=== PATIENT | male | born 1975 | race Caucasian/White ===

== ENCOUNTER 2016-10-25 14:00 | Emergency (ER) | payer OTHER ==
[~2016-10-25] VITALS: Ht 177.8 cm; Wt 136.1 kg
[~2016-10-25 14:00] MED LIST: AFRIN30 ML NS; ALBUTEROL SULF8.5 GM INH; BUPROPION HCL100 MG PO; CLARITIN10 MG PO; OMEPRAZOLE40 MG PO; ZOLPIDEM TARTRAT5 MG PO
[2016-10-25] MEDS ORDERED: PRILOSEC OTC20 MG PO (14:11)
[2016-10-25] MEDS ORDERED: KEFLEX500 MG PO (16:01)
[2016-10-25] MEDS ORDERED: ZOFRAN ODT4 MG SL (16:01)
[2016-10-25] MEDS ORDERED: IBUPROFEN800 MG PO (16:01)
[2016-10-25] MEDS ORDERED: OXYCODONE HCL5 MG PO (16:01)
== END 2016-10-25 16:09 | disposition home or self-care (01) ==
LOC: ED 14:00
DX: N39.0 Urinary tract infection, site not specified (principal); Z98.890 Other specified postprocedural states; Z88.5 Allergy status to narcotic agent; Z79.899 Other long term (current) drug therapy
CPT/HCPCS: 74176; 80053; 81001; 85025; 87077; 87088; 87186; 96374; 96375; 99284; J0696; J1170; J1885; J2405

== ENCOUNTER 2016-12-01 19:15 | Emergency (ER) | payer OTHER ==
[~2016-12-01] VITALS: Ht 444.5 cm; Wt 138.8 kg
[~2016-12-01 19:15] MED LIST changes: +IBUPROFEN800 MG PO; +KEFLEX500 MG PO; +OXYCODONE HCL5 MG PO; +PRILOSEC OTC20 MG PO; +ZOFRAN ODT4 MG SL
[2016-12-01] MEDS ORDERED: DICLOFENAC SODI75 MG PO (20:11)
[2016-12-01] MEDS ORDERED: TRAMADOL HCL50 MG PO (20:12)
[2016-12-01] MEDS ORDERED: NORCO 5-325 TA1 EACH PO (22:37)
== END 2016-12-01 23:27 | disposition home or self-care (01) ==
LOC: ED 19:15
DX: S29.011A Strain of muscle and tendon of front wall of thorax, initial encounter (principal); R91.1 Solitary pulmonary nodule; E04.1 Nontoxic single thyroid nodule; J45.909 Unspecified asthma, uncomplicated; F41.9 Anxiety disorder, unspecified; Z79.899 Other long term (current) drug therapy; X58.XXXA Exposure to other specified factors, initial encounter
CPT/HCPCS: 71250; 96374; 96375; 99284; J1170; J2405

== ENCOUNTER 2016-12-04 16:08 | Emergency (ER) | payer OTHER ==
[~2016-12-04] VITALS: Ht 444.5 cm; Wt 138.8 kg
[~2016-12-04 16:08] MED LIST changes: +DICLOFENAC SODI75 MG PO; +NORCO 5-325 TA1 EACH PO; +TRAMADOL HCL50 MG PO
[2016-12-04] MEDS ORDERED: KETOROLAC TROME10 MG PO (18:30)
--- NOTE | 2016-12-04 19:17 | EKG ---
[facility] [address] [place] [address] Signed Normal sinus rhythm Normal ECG No previous ECGs available Confirmed by JOSE MORGAN MD ([id number]) on 12/04/2016 7:17:02 PM Electronically Signed By: JOSE MORGAN MD 12/04/16 1917 PATIENT NAME: SHAZIA ESCAMILLA Electrocardiogram DATE OF : 73 PHYSICIAN: JOSE MORGAN MD REPORT #: [id number] REPORT IS CONFIDENTIAL AND NOT TO BE RELEASED WITHOUT AUTHORIZATION
== END 2016-12-04 19:00 | disposition home or self-care (01) ==
LOC: ED 16:08
DX: R07.2 Precordial pain (principal); J45.909 Unspecified asthma, uncomplicated; G47.30 Sleep apnea, unspecified; F41.9 Anxiety disorder, unspecified; Z79.899 Other long term (current) drug therapy
CPT/HCPCS: 71020; 80053; 85025; 85651; 86140; 93005; 93010; 96374; 96375; 99283; J1170; J1885; J2405

== ENCOUNTER 2016-12-05 09:38 | Observation (INO) | payer OTHER ==
[~2016-12-05] VITALS: Ht 190.5 cm; Wt 145.2 kg
[~2016-12-05 09:38] MED LIST changes: +KETOROLAC TROME10 MG PO
--- NOTE | 2016-12-05 10:30 | NUR ---
PATIENT AMBULATED DOWN TO THE MEDICAL FLOOR FOR ADMISSION TO ROOM 124. PATIENT IS STEADY ON HIS FEET AND PAIN IS TOLERABLE, HE TOOK SOME PAIN MEDICATION PRIOR TO ADMIT TO THE HOSPITAL. PATIENT CHANGED INTO HIS GOWN AND IV STARTED IN THE RIGHT FOREARM. ADMIT ASSESSMENT COMPLETED.
--- NOTE | 2016-12-05 10:40 | NUR ---
DOCTOR JOAN CALLED AND ORDER RECEIVED FOR MEDROL DOSE PACK RECEIVED. PATIENTS GIRLFRIEND BRINGING IN HIS MEDICATION FOR PHARMACY TO VERIFY.
--- NOTE | 2016-12-05 10:52 | NUR ---
FIRST VITAL SIGNS TAKEN. HAD PATIENT CHANGE INTO GOWN. NURSE NOW IN ROOM
--- NOTE | 2016-12-05 10:57 | NUR ---
PATIENT UP TO THE BATHROOM TO VOID, HE REMAINS STEADY ON HIS FEET. IV VANCOMYACIN STARTED AT THIS TIME.
--- NOTE | 2016-12-05 10:59 | NUR ---
PATIENT'S PAIN TOLERABLE AT THIS TIME AT A 5/10, URINE SAMPLE OBTAINED, URINE IS A DARK YELLOW, PATIENT VOIDED ONLY 30MLS. NO C/O PAIN WITH URINATION.
--- NOTE | 2016-12-05 11:42 | NUR ---
PATIENT IN ROOM WITH SIGNIFICANT OTHER. DOING WELL.
--- NOTE | 2016-12-05 12:00 | NUR ---
PATIENT C/O 09/01 CHEST WALL PAIN, PATIENT GIVEN 2MG OF DILAUDID PO AT THIS TIME. MENU GIVEN TO THE PATIENTS GIRLFRIEND TO ORDER HIM SOME LUNCH. PATIENT HAS NO OTHER NEEDS AT THIS TIME. WATER FILLED UP FOR HIM.
--- NOTE | 2016-12-05 12:13 | NUR ---
DR FRANCO IN TO SEE THE PATIENT AT THIS TIME. PATIENT'S PAIN STILL AT A 7/10 PATIENT GIVEN HIS SECOND DILAUDID PO AT THIS TIME WITH CRACKERS.
--- NOTE | 2016-12-05 12:22 | NUR ---
PATIENT PROVIDED WITH A WARM BLANKET AT THIS TIME.
--- NOTE | 2016-12-05 14:21 | NUR ---
DR MORGAN WAS IN THE ROOM FOR A CONSULT PER REQUEST BY DR FRANCO. PATIENT HAS INCREASED PAIN 8/10 AND HIS FACE IS FLUSHED. TEMPERATURE AT THIS TIME IS 99.8 DEGREES FARENHEIGHT. DOCTOR EDDIE AWARE. IV BOLUS OF LR STARTED AT THIS TIME. URINE OUT PUT LOW AT 20MLS SINCE ADMIT TO THE FLOOR. DR FRANCO AND DR MORGAN NOTIFIED.
--- NOTE | 2016-12-05 14:23 | NUR ---
PATIENT WAS GIVEN HIS SCHEDULED TORADOL IV. ALSO PROVIDED WITH A WARM BLANKET. PATIENT REFUSED ICE OR HEAT TO THE CHEST AT THIS TIME.
--- NOTE | 2016-12-05 15:26 | NUR ---
SECOND BOLUS OF LR HUNG AND RUNNING AT THIS TIME. PATIENT HAS NOT YET VOIDED SINCE THE FIRST BOLUS STARTED.
--- NOTE | 2016-12-05 15:48 | NUR ---
NURSE IN ROOM
--- NOTE | 2016-12-05 16:00 | NUR ---
GAVE PATIENT HIS SCHEDULED MEDICATION AT THIS TIME. NEW BAG OF IV FLUID HUNG AND PATIENT ASSISTED UP TO THE BATHROOM TO VOID. PATIENT PAIN IS TOLERABLE AT THIS TIME AT 4/10. HE HAS NO OTHER NEEDS AT THIS TIME.
--- NOTE | 2016-12-05 18:33 | NUR ---
PATIENT C/O 10/02 CHEST WALL PAIN, PATIENT GIVEN 4MG OF DILAUDID PO AFTER DR FRANCO WAS CALLED REGARDING INCREASE IN PAIN. NEW ORDER RECEIVED FOR INCREASE IN DILAUDID. DR MORGAN CALLED REGARDING INCREASE IN BLOOD PRESSURE MD WOULD LIKE A RECHECK OF BP AFTER PAIN IS BETTER CONTROLLED.
--- NOTE | 2016-12-05 19:30 | NUR ---
REPORT RCVD FROM LINDA MARVIN. IN TO MEET PT. PT IN BED, APPEARS TO BE PAINFUL. PT RUBBING AREA ON CHEST. IVF INFUSING. PT RECVING IV ABX. AT BEDSIDE. NO FURTHER NEEDS AT THIS TIME. CALL LIGHT IN REACH.
--- NOTE | 2016-12-05 20:00 | NUR ---
PATIENT RESTING QUITLY IN BED WITH WIF AT BED SIDE.
--- NOTE | 2016-12-05 21:00 | NUR ---
NURSE NOTIFIED RE MILAGROSP.
--- NOTE | 2016-12-05 21:00 | NUR ---
SPOKE WITH PT'S IN FORBES. SHE WILL BE LEAVING THE FLOOR TO CHECK ON THEIR HOME AT THIS TIME. WOULD LIKE TO RETURN AND STAY WITH PT. ADVISED PT RETURN THROUGH ER ENTERANCE. BLANKETS AND SHEETS PLACED IN ROOM. PT AND HAVE QUESTION REGARING DIAGNOSIS AND PLAN OF CARE FOR THE UPCOMING DAYS. NOTIFIED THAT RN WILL REVIEW MD NOTES AND UPDATE WHEN RETURNS. CALL LIGHT IN REACH.
--- NOTE | 2016-12-05 22:40 | NUR ---
IN TO CHECK ON PT, PT AWAKE WATCHING TV. PT STATE PAIN IS " 4/10 AT THIS TIME. THIS IS THE BEST IT HAS BEEN ON 3 WEEKS." PT ADVISED THAT HE CAN HAVE DILAUDID AT ANY POINT IF NEEDED FOR INCREASING PAIN. AFTER DISCUSSION BETWEEN PT AND HIS PT DECIDE TO TAKE DILAUDID 4 MG AT THIS TIME "IN ORDER TO STAY AHEAD OF THE PAIN." MEDICATION GIVEN. NO FURTHER NEEDS AT THIS TIME. NO FURTHER NEEDS AT THIS TIME. AT BEDSIDE. CALL LIGHT IN REACH.
--- NOTE | 2016-12-06 05:39 | NUR ---
NURSE NOTIFIED RE BP.
--- NOTE | 2016-12-06 06:00 | NUR ---
PATIENT SLEPT MOST OF THE NIGHT AWAKENING ONLY A FEW TIME FOR PAIN MEDICATION. HE USUALL GOES TO SLEEP AT ABOUT 4/10 BUT PAIN DID GET UP TO A 10/10 ONCE. HE SAID HE WAITED TO LONG TO ASK FOR MEDICATION, BUT WE GOT THE PAIN CONTROLLED QUICKLY AFTER SOME IV TORODOL AND PO DILUDID.
--- NOTE | 2016-12-06 07:50 | NUR ---
PT AWAKE IN BED. DR IN ROOM. WILL CHECK BACK LATER.
--- NOTE | 2016-12-06 08:00 | NUR ---
DR FRANCO IN THE ROOM VISITING WITH THE PATIENT. PATIENTS PAIN IS AT A 10/10, 4MG OF DILAUDID ORDERED ONCE AT THIS TIME FOR INCREAED PAIN. PATIENT STATES THAT IT HURTS TO INHALE. DILAUDID GIVEN PO WITH TORADOL 30MG IV FOR PAIN COVERGE. PATIENT'S WATER FILLED UP FOR HIM AND BREAKFAST HAS BEEN ORDERED. PATIENT'S FRIEND REMAINS AT THE BEDSIDE TO ASSIST HIM. ASSESSMENT COMPLETED, PATIENT REMAINS ON RA WITH NO C/O SOB.
--- NOTE | 2016-12-06 10:04 | NUR ---
PATIENT PAIN TOLERABLE AT THIS TIME. PATIENT TOLERATED ALL OF HIS BREAKFAST.
--- NOTE | 2016-12-06 11:03 | NUR ---
PAIN STARTING TO COME BACK AT THIS TIME, PATIENT RATES PAIN 5/10, PATIENT GIVEN 2 DILAUDID 4MG TABLETS AT THIS TIME. TROUGH DRAWN AND AWAITING RESULTS.
--- NOTE | 2016-12-06 11:20 | NUR ---
PATIENT UP TO THE SHOWER, LINEN CHANGE DONE.
--- NOTE | 2016-12-06 11:57 | NUR ---
ND AWAKE IN BED. EMPTY GARBAGE. HIGH RISK OB ROOM. PT STATED HE DID NOT NEED ANYTHING.
--- NOTE | 2016-12-06 11:58 | NUR ---
DOCTOR FRANCO CALLED AND NEW ORDER RECEIVED FOR OXYCODONE PO FOR PAIN CONTROL, PATIENTS PAIN AFTER TAKING DILAUDID STILL AT A 8/10. 7.5MG GIVEN PO NOW OF OXYCODONE. PATIENT'S BP ELEVATED DUE TO PAIN, DOCTOR MORGAN NOTIFIED.
--- NOTE | 2016-12-06 13:10 | NUR ---
PT IN ALOT OF PAIN. TOLD NURSE. SHE IS GOING TO ASSES THE PT.
--- NOTE | 2016-12-06 13:31 | NUR ---
DOCTOR FRANCO CALLED REGARDING PAIN THAT STILL REMAINS AT A 8/10. PATIENT GIVEN 1MG OF DILAUDID IV AT THIS TIME AND A PULSE OX PLACED ON HIM. PATIENT ALSO GIVEN 650MG OF TYLENOL AT THIS TIME.
--- NOTE | 2016-12-06 14:06 | NUR ---
PATIENT GIVEN TORADOL PO AT THIS TIME FOR PAIN 8/10 IN HIS CHEST WALL. PATIENT IS RESTING IN BED WITH HOB ELEVATED. HE DIDN'T EAT HIS LUNCH DUE TO PAINFUL BREATHS.
--- NOTE | 2016-12-06 14:42 | NUR ---
PATIENT PAIN BETTER AT THIS TIME, PATIENT GIVEN 8MG OF DILAUDID PO AT THIS TIME FOR PAIN COVERAGE. PATIENT SITTING UP IN BED TALKING WITH HIS FAMILY. NO OTHER NEEDS AT THIS TIME.
--- NOTE | 2016-12-06 15:58 | NUR ---
IV DECREASED TO 75MLS/HR AT THIS TIME, DOCTOR MORGAN AND THE MEDICAL STUDENT IN THE ROOM TO EVALUATE THE PATIENT AT THIS TIME.
--- NOTE | 2016-12-06 17:27 | NUR ---
PATIENT IV RICK BARFIELD AT THIS TIME. PATIENT IS ABLE TO USE THE IS AND HIS PAIN IS TOLERABLE. PATIENT'S DINNER GIVEN TO HIM AT THIS TIME AND NO OTHER NEEDS OR CONCERNS AT THIS TIME.
--- NOTE | 2016-12-06 18:22 | NUR ---
TOOK PATIENT FRESH WATER AND EMPTYED GARBAGE. PATIENT STATED HE DID NOT NEED ANYTHING.
--- NOTE | 2016-12-06 18:44 | NUR ---
PATIENT'S PAIN IS AT A 7/10, PATIENT GIVEN 8MG OF DILAUDID PO AT THIS TIME.
--- NOTE | 2016-12-06 20:00 | NUR ---
PATIENT RESTING IN HIS ROOM HIS ORDER PAIN MEDICATION APPEARS TO BE MAKEING HIM COMFORTABLE.
--- NOTE | 2016-12-06 22:00 | NUR ---
PATIENT HAS BEEN VISITING WITH PAIN REMAINS BETWEEN 4-11/02. 4-10 IS TOLERABLE FOR HIM. STILL THE PAIN IS FELT IN THE RIGHT CHEST AND RADIATES THROUGH TO THE BACK. PATIENT IS GOOD AT ASK FIR MEDS IF IF HE IS HURTING.
--- NOTE | 2016-12-07 00:02 | NUR ---
PATIENT RESTING QUIETLY AT THIS TIME, EYES CLOSED, RESPS EVEN AND UNLABORED.
--- NOTE | 2016-12-07 02:00 | NUR ---
PT STILL ASKING FOR PAIN MEDICATION AT TIMES, AND HAS BEEN ABLE TO REST AFTER THE HAVE BEEN GIVEN. PAIN STIL SEEMS TO REMAIN IN THE RIGHT CHEST SOME TIME TO THE POINT HE CAN'T HARDLE MOVE HIS RIGHT ARM.
--- NOTE | 2016-12-07 04:00 | NUR ---
HELD PATIENTS MED HELD AT THIS TIME HE APPEARED TO BE SLEEPING COMFORTABLY.
--- NOTE | 2016-12-07 07:16 | NUR ---
PATIENT HAD A REALLY GOOD SECOND HALF OF THE NIGHT AND WOKE UP FEELING RESTED, EVEN THOUGH HE WAS NEEDING MORE PAIN MEDICATION THE THIS MORNING.
--- NOTE | 2016-12-07 08:15 | NUR ---
PT SITTING UP IN BED, EYES CLOSED, RESP EVEN AND UNLABORED. PT AWOKE EASILY TO VOICE UPON ENTERING ROOM. RATING RIGHT CHEST PAIN 09/01. MEDICATED WITH SCHEDULED OXY AND PRN TORADOL. ASSESSMENT COMPLETED. PT ALERT AND ORIENTED. IV INFUSING WNL, SATTING 97% ON RA. CALL LIGHT WITHIN REACH.
--- NOTE | 2016-12-07 10:39 | NUR ---
PT IN BED AM CARE. EMPTY GARBAGE.
--- NOTE | 2016-12-07 11:00 | NUR ---
PT TRANSFERRED INDEPENDENTLY TO WHEELCHAIR. TRANSPORTED TO IMAGING FOR CT AT THIS TIME. PREMEDICATED WITH ZOFRAN AND DILAUDID.
--- NOTE | 2016-12-07 11:23 | NUR ---
PT RETURNED FROM CT. AMB INDEPENDENTLY TO BED. SITTING UP IN BED CALL LIGHT AND PERSONAL ITEMS WITHIN REACH. DENIES NEEDS OR CONCERNS AT THIS TIME.
--- NOTE | 2016-12-07 13:50 | NUR ---
PATIENT GIVEN 1MG IV DILAUDID FOR 9/[address] MORGAN IN TO SEE PATIENT. PATIENT TO CONTINUE ON ANTIBIOTICS, FOLLOW UP WITH A UROLOGIST UPON DISCHARGE. POSSIBILITY OF PATIENT NEEDING OUT PATIENT IV ABX AFTER DISCHARGE.
--- NOTE | 2016-12-07 14:25 | NUR ---
PT IS AWAKE BED. IN PAIN. REPORTED TO NURSE
--- NOTE | 2016-12-07 15:00 | NUR ---
PT C/O 12/02 RIGHT CHEST PAIN. MEDCIATED WITH PRN MEDS. PT GIVEN WARM COMPRESS. DISCUSSED ORDER FOR LIDOCAIN PATCH WITH DR. FRANCO.
--- NOTE | 2016-12-07 17:11 | NUR ---
PT BALA HAMMOND WITH GIRLFRIEND. RACHEL WELL
--- NOTE | 2016-12-07 18:25 | NUR ---
PT SITTING UP IN BED EATING DINNER. APPEARS TO BE IN GOOD SPIRITS. STATES "I FEEL THE BEST I HAVE IN A WHILE." RATING PAIN 3/10. DENIES NAUSE OR OTHER CONCERNS. IV RICK ALONSO. CALL CORRINE REYES.
--- NOTE | 2016-12-07 19:45 | NUR ---
IN TO SEE PT, PT AWAKE. PT APPEARS TEARFUL, STATES " I GOT MYSELF ALL WORKED UP ABOUT THIS TRANSFER THING." PT REASSURED THAT RN WILL ATTEMPT TO MAKE TRANSFER SMOOTH POSSIBLE. PT RATES PAIN 8/10, SCHEDULED OXY AND IV DILAUDID GIVEN. PT REQUEST TO TAKE A SHOWER. PT STEADY ON FEET, SL AND IV WRAPPED. PT SO TO HELP IN SHOWER. PT WILL CALL WHEN DONE IN SHOWER. ASSURED PT AND FAMILY THAT IF THERE IS ANY NEW OF TRANSFER, WILL LET THEM KNOW VIET. CALL LIGHT IN PLACE.
--- NOTE | 2016-12-07 20:45 | NUR ---
PT OUT OF SHOWER. IV FLUID RESTARTED. NO FURTHER NEEDS AT THIS TIME. SO AT BEDSIDE. CALL LIGHT IN PLACE.
--- NOTE | 2016-12-07 21:00 | NUR ---
IN ROOM, PT AWAKE WATCHING TV. IV TORADOL GIVEN AND LIDODERM PATCH REMOVED. PT AND FAMILY CURIOUS ABOUT TRANSFER. WILL CALL AND GET UPDATE FROM FILTER TIP CATCHER. WILL CONTINUE TO MONITOR PT AND UP DATE ABOUT TRANSFER. NO FURTHER NEEDS AT THIS TIME CALL LIGHT IN PLACE.
--- NOTE | 2016-12-07 22:30 | NUR ---
PER HOUSE SUPERVISIOR, ACCEPTING PHYSICIAN DR. KINGSLEY TINEO AT [facility] NOTED. AWAITING BED CONFIRMATION. PT UPDATED.
--- NOTE | 2016-12-07 22:30 | NUR ---
called dr. farmer to check on the status of accepting doctor at [facility]. Dr. pa states that he had not been called back by surgeon, requests that [facility] be called for follow up. upon calling [facility] it was found that they had not yet received the images. imaging notifed and asked to resend images to [facility]. [address] dr. pa called back with accepting doctor Og Quan.called to confirm bed space which can not be confirmed at this time. stacie states she will call as soon as she has a bed assignment. insulation cupola charger updated on pt status.
--- NOTE | 2016-12-08 00:10 | NUR ---
[facility] BED CONFIRMATION CALLED TO HOUSE SUPERVISIOR. AREA 14C ROOM 24. HOUSE SUPERVISIOR TO PREPARE FOR TRANSPORTATION. PT UPDATED.
--- NOTE | 2016-12-08 00:55 | NUR ---
[facility] was called to check their availability for transport, they were unable to do transport at this time. [facility] called who accepted. They are currently on a transport but will be available around 0500 to take pt to [facility]. bed control at [facility] updated on transportation arrangements.
--- NOTE | 2016-12-08 01:15 | NUR ---
IN TO CHECK ON PT, PT IN BED RESTING. AWAKENS EASILY TO NOISE. RATES PAIN A 6/10, DILAUDID 8 MG GIVEN. UPDATED ON TRANSPORT, WILL LET PT KNOW WHEN TRANSPORT TIME IS CONFIRMED. NO FURTHER NEEDS AT THIS TIME. CALL LIGHT IN REACH.
--- NOTE | 2016-12-08 02:20 | NUR ---
PT CALLED, RN IN TO CHECK ON PT. PT STATES IV SITE "IS REALLY STARTING TO BOTHER ME." PT REQUEST IV SITE BE CHANGED. IVF STOPPED. NEW IV PLACED BY BRENT MARVIN. TORADOL GIVEN FOR PAIN. PER HOUSE SUPERVISIOR TRANSPORT ESTIMATED TO ARRIVE AT 0500 FOR TRANSPORT. PT NOTIFIED. NO FURTHER NEEDS AT THIS TIME. PT STATES HE IS "ANXIOUS ABOUT THE UNKNOWN." PT REASSURED. NO FURTHER NEEDS AT THIS TIME. CALL LIGHT IN PLACE.
--- NOTE | 2016-12-08 04:05 | NUR ---
IN TO CHECK ON PT, PT SLEEPING. AWAKENS EASILY TO NOISE. RATES PAIN 4/10, SCHEDULED OXYCODONE GIVEN. NO FURTHER NEEDS AT THIS TIME. CALL LIGHT IN REACH.
--- NOTE | 2016-12-08 05:00 | NUR ---
[facility] TRANSPORT TO FLOOR. IN ROOM TO GIVE REPORT. PT RATES PAIN 4/10, DILAUDID PO GIVEN IN PREPERATION FOR TRANSPORT. PT IN GOOD SPIRITS. VITALS OBTAINED BEFORE DEPARTURE. PT DEPARTURE TIME 0518.
--- NOTE | 2016-12-08 18:51 | DS ---
[facility] [address], [place] [address] Signed DATE OF DISCHARGE: 12/07/16 ADMISSION DIAGNOSIS: Pyomyositis, left chest. DISCHARGE DIAGNOSIS: Pyomyositis, left chest. PROCEDURE PERFORMED: CT scan of the abdomen. BRIEF HISTORY Shazia is a 41-year-old gentleman with about a 3-week history of worsening anterior chest pain. This initially started sort of as a strain, but continued to worsen until his pain was unmanageable. Labs initially were negative, however, on the day of admission, his CRP was 30 and his white blood cell count was 11.9. I presume diagnosis of polymyositis was then given and he was started on IV antibiotics. Continued on IV nonsteroidals and pain medication. Clinically, his symptoms continued to gradually worsen in that he was taking more and more pain medication. I did shoulder surgery on him about a year ago. His pain medication requirements were quite low then. His CRP dropped to 8 yesterday and is back up to 49 today. His white count has remained stable. It is a little bit unclear as to whether this is a polymyositis or something more autoimmune such as inclusion body myositis. I think that [facility] including possible I and D and biopsy of this which is out of my realm. I discussed this with the general surgeon at [facility] and with the patient and all were in agreement. The general surgeon wants to look at the imaging and then will talk again hopefully for transfer. In the meantime, we will continue to keep him comfortable with the pain medication he is on. Deedee Oseguera MD BA/Elaine /[id number] cc: Ramakrishna Dasilva DO Electronically Signed By: DEEDEE OSEGUERA MD 12/08/16 1851 PATIENT NAME: FRANCINESHAZIAYovany SINGH DISCHARGE SUMMARY DATE OF : 73 PHYSICIAN: DEEDEE OSEGUERA MD REPORT #: [id number] REPORT IS CONFIDENTIAL AND NOT TO BE RELEASED WITHOUT AUTHORIZATION
== END 2016-12-08 05:18 | disposition short-term general hospital (02) ==
LOC: MS 09:38
PROVIDERS: ADMIT Specialist
DX: M60.08 Infective myositis, other site (principal); B96.20 Unspecified Escherichia coli [E. coli] as the cause of diseases classified elsewhere; L03.313 Cellulitis of chest wall; N39.0 Urinary tract infection, site not specified; J45.909 Unspecified asthma, uncomplicated; K21.9 Gastro-esophageal reflux disease without esophagitis; F32.9 Major depressive disorder, single episode, unspecified; K31.84 Gastroparesis; Z79.1 Long term (current) use of non-steroidal anti-inflammatories (NSAID); Z79.891 Long term (current) use of opiate analgesic; Z79.899 Other long term (current) drug therapy
CPT/HCPCS: 36415; 74177; 80069; 80202; 83605; 85025; 86140; 87040; 87077; 87088; 87186; 94762; 96361; 96365; 96366; 96375; 96376; G0378; J0696; J1170; J1885; J2405; J3370; J7060; J7120; Q9967

== ENCOUNTER 2017-09-15 05:50 | Inpatient (IN) | payer OTHER ==
[~2017-09-15] VITALS: Ht 190.5 cm; Wt 140.6 kg
[~2017-09-15 05:50] MED LIST changes: -ALBUTEROL SULF8.5 GM INH; +BUPROPION HCL100 M1 PO; -BUPROPION HCL100 MG PO; +LOSARTAN POTAS100 MG PO; +NEXIUM40 MG PO; +PROAIR HFA8.5 GM INH
[2017-09-15] MEDS ORDERED: QVAR REDIHALE10.6 G1 INH (06:04)
--- NOTE | 2017-09-15 09:38 | NUR ---
09/15/17 0938 Sho French 0922 PATIENT ARRIVES TO PACU AWAKE, BUT DROWSY. RATES PAIN AT 5/10, DESCRIBES A PRESSURE. PATIENT IS MORE CONCERNED ABOUT NASAL CONGESTION, AND FEEL THAT THE CONGESTION IS MAKING IT DIFFICULT TO BREATHE. RESP EVEN AND UNLABORED, MASK AT 6 LITERS. PATIENT PULLING AT MASK, CHANGED TO NASAL CANULA, OXYGEN AT 2 LITERS. 0935 PATIENT RESTING WITH EYES CLOSED. CONTINUES TO C/O NASAL CONGESTION, BUT TOLERATES NASAL CANULA, SATS 97%. RESP EVEN AND UNLABORED. ABLE TO TAKE A SIP OF WATER.
--- NOTE | 2017-09-15 10:12 | NUR ---
PT ARRIVED TO ROOM 110 AT THIS TIME. HE IS ALERT AND ORIENTED. PT REPORTS PAIN 4-5/10 AT THIS TIME. HE REPORTS A PRESSURE AT THROAT.
--- NOTE | 2017-09-15 11:10 | NUR ---
PT REPORTS PAIN 09/01 3MG I.V. MORPHINE ADMINISTERED AT THIS TIME. WILL MONITOR FOR AFFECTIVENESS. PT HAS NOT FELT LIKE HAVING MORE THAT SIPS OF WATER AT THIS TIME
--- NOTE | 2017-09-15 11:36 | NUR ---
PT RESTING IN BED, HE REPORTS PAIN IS 4/10, HE REPORTS THAT IS MUCH BETTER. NO DISTRESS NOTED. V/S STABLE
--- NOTE | 2017-09-15 13:02 | NUR ---
PT REPORTS PAIN IS TOLERABLE AT THIS TIME. HE IS SITTING UP EATING PUDDING. V/S STABLE
[2017-09-15] MEDS ORDERED: PROBIOTIC1 EAC1 PO (13:50)
[2017-09-15] MEDS ORDERED: ADVIL200 MG PO (13:50)
--- NOTE | 2017-09-15 13:51 | NUR ---
MED REC COMPLETE
--- NOTE | 2017-09-15 14:28 | NUR ---
PT UP TO SIDE OF BED TO AMBULATE AT THIS TIME.
--- NOTE | 2017-09-15 14:42 | NUR ---
PT UP AMBULATED MED/SURG UNIT FULL LAP, WITH , TOLERATED WELL, WENT INTO BATHROOM AND VOIDED 450ML URINE. PT SITTING UP IN RECLINER AT THIS TIME. HE REPORTS PAIN IS TOLERABLE AT THIS TIME. DRESSING CDI. PT TOLERATING DIET WELL.
--- NOTE | 2017-09-15 15:24 | OR ---
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 No evidence of capsular invasion. Final pathology pending. PROCEDURE: Left thyroid lobectomy with isthmusectomy. ANESTHESIA: General endotracheal, Alex Salomon CRNA. INDICATION: This 42-year-old white man is a patient of Dr. Hernandez and was noted on CT scan performed number of months ago, for soft tissue infection of the sternal area to have a left thyroid nodule. Further evaluation included an ultrasound, which showed a complex nodule of the left thyroid lobe as well as another smaller nodule in the upper pole. Measurement of the nodules was 11.8 mm and the other 11 mm. A fine-needle aspiration biopsy was performed by Dr. Hugo Wilkins in the [place] showing a Hurthle cell lesion considered atypical. The patient is admitted at this time to undergo a left thyroid lobectomy with isthmusectomy, possible total thyroidectomy depending on findings of frozen pathology. The risks of bleeding, infection, recurrent laryngeal nerve injury, external laryngeal nerve injury, parathyroid excision unintended and other unforeseen complications were reviewed in detail. The frozen pathology clearly shows malignancy, then right thyroid lobectomy is anticipated. The patient and his family understand this and wished to proceed. FINDINGS: The thyroid proper was of normal size. The bulky mass in the lower pole was quite obvious and separate and distinct. The other nodule more cephalad in the left thyroid lobe was within the parenchyma and more subtle. The lesion itself had a cystic and solid component with a capsule. Frozen pathology did not demonstrate invasion of the Electronically Signed By: ALEX CAMPBELL MD 09/15/17 1524 PATIENT NAME: SHAZIA ESCAMILLA OPERATIVE REPORT DATE OF : 73 REPORT #: [id number] PHYSICIAN: ALEX CAMPBELL MD PCP: ALAN HERNANDEZ MD REPORT IS CONFIDENTIAL AND NOT TO BE RELEASED WITHOUT AUTHORIZATION [facility] [address] [place], [place] [address] Signed capsule in either lesion. There were considered a "follicular lesions." The recurrent laryngeal nerve was identified and preserved. Parathyroid glands were seen. There were small and also not excised. DESCRIPTION OF PROCEDURE: The patient was brought to the operating room, given a general endotracheal anesthetic without problem. Sequential compression device stockings was used. Due to the patient's large body habitus (305 pounds), his arms were placed across the lower abdomen and carefully padded. A shoulder roll was placed and mild neck extension employed. The upper torso was prepared with a chlorhexidine solution and draped sterilely. The patient had no natural skin crease to take advantage of for incision. An incision was made two fingerbreadths above the sternal notch between the medial heads of the sternocleidomastoid muscle. Dissection was carried through the dermis sharply and electrocautery was used for hemostasis. Subcutaneous fat was divided with electrocautery and the platysmal layer similarly divided. The superior and inferior flaps were developed with both blunt and electrocautery dissection. Gelpi clamps were placed. Midline strap muscles were elevated and in the midline. Strap muscles were freed including the sternohyoid and sternothyroid and retracted laterally. The underlying thyroid was identified and found to have no sign of capsular invasion into the muscle itself. Palpation revealed that the offending lesion was posteriorly oriented explaining its nonpalpable nature on clinical exam. Using sharp dissection and retraction medially, lateral attachments were divided. The superior polar vessels were individually with a small right angle clamp and individually ligated with 3-0 silk ties and divided. The inferior pole was similarly divided. Using the extracapsular technique of Kaur, the midportion of the thyroid laterally was freed and using meticulous dissection with a Kitner implement, the posterior elements were freed from the thyroid more fully. The recurrent laryngeal nerve was incidentally identified and positioned in a typical fashion. Further dissection from lateral to medial dissection was undertaken. A few clips were applied as necessary. Ultimately, the ligament of Suarez was transected with minimal amounts of electrocautery freeing the thyroid lobe fully. The avascular space superficial to the trachea . The isthmus was secured at the border of the right thyroid lobe with hemostats. The specimen was removed. The lesion itself was transected and I could visualize the complex cystic/solid mass in the lower pole. There was a well-formed capsule. This specimen was sent for pathology. Inspection of the operative site showed no sign of significant bleeding or any other particular problem. The isthmus remnants were secured with 2-0 Vicryl suture. Electronically Signed By: ALEX CAMPBELL MD 09/15/17 1524 PATIENT NAME: SHAZIA ESCAMILLA OPERATIVE REPORT DATE OF : 73 REPORT #: [id number] PHYSICIAN: ALEX CAMPBELL MD PCP: ALAN HERNANDEZ MD REPORT IS CONFIDENTIAL AND NOT TO BE RELEASED WITHOUT AUTHORIZATION [address] [address] Signed Hemostasis was assured with minimal amounts of electrocautery were safe. On the area of the ligament of Suarez, a small amount of Ct was applied for hemostatic effect. Midline strap muscles were reapproximated with interrupted 2-0 Vicryl suture. The platysmal layer was reapproximated with interrupted 3-0 Vicryl and skin closed with running subcuticular 4-0 Vicryl. Steri-Strips were applied as was a Mepilex silver sponge dressing. By this point, the pathology report was returned determining both lesions to be "follicular lesions," but without sign of capsular invasion or other problem. It was deemed most appropriate not to take the right lobe as there was no certain diagnosis of malignancy. The patient was ultimately extubated and transferred to recovery room in good condition having suffered no complication. BLOOD LOSS: Minimal. COMPLICATIONS: None. COUNTS: Sponge, needle, and instrument counts reported as correct x3. MD GÓMEZ Cheema/MODL /[id number] cc: MD Alan Keller MD Copies: Hugo Wilkins MD Electronically Signed By: ALEX CAMPBELL MD 09/15/17 1524 PATIENT NAME: SHAZIA ESCAMILLA OPERATIVE REPORT DATE OF : 73 REPORT #: [id number] PHYSICIAN: ALEX CAMPBELL MD PCP: ALAN HERNANDEZ MD REPORT IS CONFIDENTIAL AND NOT TO BE RELEASED WITHOUT AUTHORIZATION [address] [address] Signed ALAN HERNANDEZ MD ~ Electronically Signed By: ALEX CAMPBELL MD 09/15/17 1524 PATIENT NAME: SHAZIA ESCAMILLA OPERATIVE REPORT DATE OF : 73 REPORT #: [id number] PHYSICIAN: ALEX CAMPBELL MD PCP: ALAN HERNANDEZ MD REPORT IS CONFIDENTIAL AND NOT TO BE RELEASED WITHOUT AUTHORIZATION
--- NOTE | 2017-09-15 17:27 | NUR ---
PT DRESSING AT BASE OF NECK CDI, NO DRAINAGE NOTED. HE HAS REQUIRED PAIN COVERAGE WITH I.V. AND PO PAIN MEDICATIONS, TOLERATING DIET WELL, NO NAUSEA. HAS BEEN OUT AMBULATING IN HALLS, VOIDING QUANTITY SUFFICIENT. INDEPENDENT IN ROOM. ICE PACK TO SITE FOR SWELLING/PAIN. WAS ALSO GIVEN MOTRIN PO. PT HAS NO SIGNS OR SYMPTOMS OF LOW CALCIUM. HAS BEEN UP IN RECLINER THIS AFTERNOON.
--- NOTE | 2017-09-15 19:35 | NUR ---
IN ROOM FOR REPORT, PT IS AWAKE IN BED WITH FAMILY IN ROOM. HE DENIES NEEDS.
--- NOTE | 2017-09-15 21:16 | NUR ---
ROUNDED CHARGE. PATIENTS VITALS TAKEN AND RECORDED. RN IN ROOM. NO COMMENTS, QUESTIONS, OR CONCENRS. CALL LIGHT IN REACH. AT THE BEDSIDE.
--- NOTE | 2017-09-15 21:27 | NUR ---
IN ROOM TO ASSESS PT AND ADMINISTER MEDICATIONS. HE REQUEST TO BE WOKEN FOR PAIN MED Q4H. DRESSING IS CDI AND PT HAS SCDS IN PLACE. PT DENIES FURTHER NEEDS AT THIS TIME.
--- NOTE | 2017-09-15 22:54 | NUR ---
PT IS RESTING WITH EYES CLOSED, RESPIRATIONS ARE EVEN AND NONLABORED. CALL LIGHT IS WITHIN REACH.
--- NOTE | 2017-09-15 23:37 | NUR ---
ADMINISTERED PERCOCET AND BROUGHT PATIENT FRESH ICE PACK AND ICEWATER. HE DENIES FURTHER NEEDS.
--- NOTE | 2017-09-16 01:46 | NUR ---
PT CALLED ASKING ABOUT MOTRIN. ADVISED HIM IT'S NOT DUE YET AND HE STATES HIS PAIN IN OK AT THIS TIME. TOLD HIM IF IT INCREASES HE CAN HAVE MORPHINE. PT DENIES FURTHER NEEDS.
--- NOTE | 2017-09-16 02:41 | NUR ---
PT RATES PAIN AT 8/10 AT THIS TIME. ADMINISTERED 2 MG IV MORPHINE. PT DENIES FURTHER NEEDS AT THIS TIME. CALL LIGHT IS WITHIN REACH.
--- NOTE | 2017-09-16 03:42 | NUR ---
ADMINISTERED PAIN MEDICATION. PT DENIES FURTHER NEEDS AT THIS TIME. CALL LIGHT IS WITHIN REACH.
--- NOTE | 2017-09-16 05:51 | NUR ---
PT IS RESTING, HE AWOKE AND STATES HE HAS NOT PAIN AND DENIES NEEDS AT THIS TIME. CALL LIGHT IS WITHIN REACH.
--- NOTE | 2017-09-16 05:52 | NUR ---
PT REQUIRED PERCOCET Q4H THROUGH THE NIGHT TO KEEP PAIN UNDER CONTROL, HE ALSO TOOK MOTRIN Q6P. HE REQUIRED 2MG MORPHINE IV ONCE FOR PAIN 10/02. HIS DRESSING REMAINS CDI AND HE IS TOLERATING A SOFT REGULAR DIET. HE IS VOIDING QS AND IS INDEPENDENT WITH THE EXCEPTION OF HELP DISCONNECTING FROM EQUIPMENT.
--- NOTE | 2017-09-16 08:11 | NUR ---
REPORT RECEIVED FROM RAJINDER RN, PATIENT'S PAIN CURRENTLY AT A 06/02, HE REQUESTED HIS PEPCID IV AND HIS PAIN MEDICATION. 1 PERCOCET GIVEN PO AT THIS TIME. PATIENT HAS HAD NO DIFFICULTIES SWALLOWING AT THIS TIME. DRESSING TO NECK REMAINS CDI WITH MEPILEX AND OPSITE.
--- NOTE | 2017-09-16 08:46 | NUR ---
ENVIRONMENTAL PROTECTION ECONOMIST ASKED PT WHEN HE WOULD LIKE TO HAVE A SHOWER. PT STATED THAT HE WILL SHOWER WHEN HE GOES HOME. PT WAS ASKED TO CALL IF THEY DECIDED TO SHOWER HERE.
[2017-09-16] MEDS ORDERED: IBUPROFEN600 MG PO (09:36)
[2017-09-16] MEDS ORDERED: MAPAP325 MG PO (09:37)
[2017-09-16] MEDS ORDERED: OXYCODON-ACETA1 EAC2 PO (09:37)
== END 2017-09-16 10:30 | disposition home or self-care (01) | DRG 627 ==
LOC: DS 05:50 → MS 10:10 → DS 10:10 → MS 09-16 10:30
PROVIDERS: ADMIT Surgery
PROC: 0GBG3ZZ Excision of Left Thyroid Gland Lobe, Percutaneous Approach (ICD-10-PCS; 2017-09-15)
PROC: 0GT Endocrine System, Resection (ICD-10-PCS; 2017-09-15)
PROC: 0GBG3ZX Excision of Left Thyroid Gland Lobe, Percutaneous Approach, Diagnostic (ICD-10-PCS; principal; 2017-09-15 06:45)
DX: E04.2 Nontoxic multinodular goiter (principal); Z91.018 Allergy to other foods
CPT/HCPCS: 00320; J0690; J1100; J1885; J2250; J2270; J2405; J2704; J2765; J3010; J7120

== ENCOUNTER 2022-12-31 12:55 | Emergency (ER) | payer OTHER | END 2022-12-31 16:48 | disposition home or self-care (01) | LOC: ED 12:55 | DX: L03.116 Cellulitis of left lower limb (principal); J45.909 Unspecified asthma, uncomplicated; Z91.018 Allergy to other foods; Z79.899 Other long term (current) drug therapy; Z79.51 Long term (current) use of inhaled steroids; Z98.890 Other specified postprocedural states ==

== ENCOUNTER 2023-01-02 13:03 | Emergency (ER) | payer OTHER ==
[~2023-01-02] VITALS: Ht 190.5 cm; Wt 134.6 kg
[~2023-01-02 13:03] MED LIST changes: +ADVIL200 MG PO; +EZETIMIBE10 MG PO; +HYDROCHLOROTHIA25 MG PO; +HYDROCODON-ACE1 EA10 PO; +IBUPROFEN600 MG PO; +MAPAP325 MG PO; +MELOXICAM15 MG PO; +OXYCODON-ACETA1 EAC2 PO; +PHENTERMINE H37.5 M1 PO; +PROBIOTIC1 EAC1 PO; +QVAR REDIHALE10.6 G1 INH; +ROSUVASTATIN CA40 MG PO
--- OUTSIDE RECORDS SUMMARY | 2023-01-02 13:07 | XMS ---
PreManage Notification: SHAZIA ESCAMILLA Security Hammer [employer] Events No recent Security Events currently on file CRITERIA MET - [facility] - 2 Visits in 30 Days CARE PROVIDERS There are no care providers on record at this time. Gwendolyn has no Care Guidelines for this patient. Ellie VISIT COUNT (12 MO.) 3 [facility] TOTAL 3 NOTE: Visits indicate total known visits. ED/C VISIT TRACKING (12 MO.) 01/02/2023 13:04 [facility] [place] TYPE: Emergency COMPLAINT: - L LEG SWELLING/REDNESS/PAIN 12/31/2022 12:55 [facility] [place] TYPE: Emergency COMPLAINT: - POSS BLOODCLOT L LEG DIAGNOSES: - Allergy to other foods - Cellulitis of left lower limb - jail (current) use of inhaled steroids - Other fdc (current) drug therapy - Other specified postprocedural states - Pain in left ankle and joints of left foot - Unspecified asthma, uncomplicated 06/05/2022 17:18 [facility] [place] TYPE: Emergency COMPLAINT: - LT LEG PAIN/NO INJURY DIAGNOSES: - Allergy to other foods - Exposure to other specified factors, initial encounter - Other fdc (current) drug therapy - Pain in left leg - Strain of left Achilles tendon, initial encounter INPATIENT VISIT TRACKING (12 MO.) No inpatient visits to display in this time frame [email or web address]
[2023-01-02 14:09] LABS: BASOPHILS 0.4 % (0-2); EOSINOPHILS 0.8 % (0-6); HEMATOCRIT 45.3 % (35.0-50.0); HEMOGLOBIN 15.6 g/dL (12.0-18.0); LYMPHOCYTES 15.6 % (24-44); MCH 32.9 (27-36); MCHC 34.5 g/dl (30-36); MCV 95.3 fl (81-99); NEUTROPHILS 73.2 % (39-80); PLATELET COUNT 165 K/uL (140-440); RBC 4.76 M/ul (4.3-5.7); RDW 12.5 (10.5-15.0)
[2023-01-02 14:28] LABS: ALBUMIN 3.4 g/dL (3.4-5.0); ALBUMIN/GLOBULIN RATIO 0.83 (1.1-2.4); ANION GAP 15.4 (7-21); BUN/CREATININE RATIO 12.71 (6.0-28.6); CALCIUM 9.4 mg/dL (8.5-10.1); CREATININE, SERUM 1.18 mg/dL (0.70-1.30); POTASSIUM 3.4 mmol/L (3.5-5.1); PROTEIN, TOTAL 7.5 g/dL (6.4-8.2)
[2023-01-02 14:29] LABS: LACTIC ACID, BLOOD 2.4 mmol/L (0.4-2.0)
[2023-01-02] MEDS ORDERED: CEPHALEXIN500 MG PO (14:29)
[2023-01-02] MEDS ORDERED: FISH OIL + D31 EACH PO (14:30)
[2023-01-02] MEDS ORDERED: VITAMIN K100 MCG PO (14:30)
[2023-01-02 18:19] LABS: INFLUENZA B NAA NEGATIVE (NEGATIVE); RESPIRATORY SYNCYTIAL VIR NAA NEGATIVE (NEGATIVE)
[2023-01-02 18:45] VITALS: BP 118/66
== END 2023-01-02 18:45 | disposition short-term general hospital (02) ==
LOC: ED 13:03
PROVIDERS: Family Medicine
DX: M65.072 Abscess of tendon sheath, left ankle and foot (principal); J45.909 Unspecified asthma, uncomplicated; Z91.018 Allergy to other foods; Z79.899 Other long term (current) drug therapy; Z11.52 Encounter for screening for COVID-19; Z20.822 Contact with and (suspected) exposure to COVID-19
CPT/HCPCS: 36415; 73701; 80053; 83605; 85025; 87040; 87502; 96375; 99284-25; C9803; J0696; J0878; J2270; J2405; J7030; J7121; Q9967; U0002

== ENCOUNTER 2023-08-14 05:50 | Day surgery (SDC) | payer OTHER ==
[~2023-08-14] VITALS: Ht 190.5 cm; Wt 140.9 kg
[~2023-08-14 05:50] MED LIST changes: +BAYER CHEWABLE81 MG PO; +CEPHALEXIN500 MG PO; +FISH OIL + D31 EACH PO; +LACTATED RINGER'S 1,000 ML IV SCH; +NEURONTIN300 MG PO; +VITAMIN K100 MCG PO
[2023-08-14 06:09] VITALS: BP 159/93
[2023-08-14 06:21] LABS: BASOPHILS 0.8 % (0-2); EOSINOPHILS 5.6 % (0-6); HEMATOCRIT 48.6 % (35.0-50.0); HEMOGLOBIN 16.4 g/dL (12.0-18.0); LYMPHOCYTES 39.7 % (24-44); MCH 32.7 (27-36); MCHC 33.7 g/dl (30-36); MCV 97.1 fl (81-99); MONOCYTES 9.6 % (0-12); NEUTROPHILS 44.3 % (39-80); PLATELET COUNT 199 K/uL (140-440); RDW 13.3 (10.5-15.0)
[2023-08-14 06:36] LABS: ALBUMIN 4.1 g/dL (3.4-5.0); ALBUMIN/GLOBULIN RATIO 1.32 (1.1-2.4); ANION GAP 14.8 (7-21); BILIRUBIN, TOTAL 0.5 ng/dL (0.2-1.0); BUN/CREATININE RATIO 21.5 (6.0-28.6); CREATININE, SERUM 0.93 mg/dL (0.70-1.30); POTASSIUM 3.8 mmol/L (3.5-5.1); PROTEIN, TOTAL 7.2 g/dL (6.4-8.2)
[2023-08-14] MEDS ORDERED: MIDAZOLAM HCL 2 MG/2 ML VIAL ONE ×2 (06:55→08:16)
[2023-08-14] MEDS ORDERED: BUPIVACAINE 0.75% IN DEXTROSE 2 ML AMP ONE (06:55)
[2023-08-14] MEDS ORDERED: LIDOCAINE HCL 2% 5 ML SDV ONE (06:55)
[2023-08-14] MEDS ORDERED: INTRA-ARTICULAR ANALGESIC INJECTION XX SCH (07:00)
[2023-08-14] MEDS ORDERED: PANTOPRAZOLE SODIUM 40 MG TABEC PO SCH (07:00)
[2023-08-14] MEDS ORDERED: GABAPENTIN 600 MG TAB PO SCH (07:00)
[2023-08-14] MEDS ORDERED: IBLOOD GLUCOSE TEST STRIP 1 EA TEST VI PRN (07:00)
[2023-08-14] MEDS ORDERED: LIDOCAINE HCL 1% 5 ML SDV INJ ONE (07:00)
[2023-08-14] MEDS ORDERED: OXYCODONE HCL 5 MG TAB PO SCH (07:00)
[2023-08-14] MEDS ORDERED: CEFAZOLIN SODIUM 3 GM/30 ML SYR IV SCH ×2 (07:00→14:00)
[2023-08-14] MEDS ORDERED: TRANEXAMIC ACID 2,000 MG in SODIUM CHLORIDE 0.9% 100 ML IV SCH (07:00)
[2023-08-14] MEDS ORDERED: ondansetron HCL 4 MG TAB PO SCH (07:00)
[2023-08-14] MEDS ORDERED: propofoL 200 MG/20 ML VIAL ONE ×5 (07:08→08:15)
[2023-08-14] MEDS ORDERED: fentaNYL citrate 100 MCG/2 ML VIAL ONE (07:27)
[2023-08-14] MEDS ORDERED: KETAMINE in NS 50 MG/5 ML SYR ONE (07:29)
[2023-08-14] MEDS ORDERED: TRANEXAMIC ACID 1,000 MG/10 ML AMP ONE (07:30)
[2023-08-14] MEDS ORDERED: KETOROLAC TROMETHAMINE 30 MG/ML VIAL ONE (08:15)
[2023-08-14] MEDS ORDERED: ACETAMINOPHEN 1,000 MG/100 ML VIAL ONE (08:15)
[2023-08-14] MEDS ORDERED: DEXAMETHASONE SOD PHOS 4 MG/ML VIAL ONE (08:15)
[2023-08-14] MEDS ORDERED: CEFUROXIME250 MG PO (08:58)
[2023-08-14] MEDS ORDERED: DICLOFENAC SODI75 MG PO (08:59)
[2023-08-14] MEDS ORDERED: GABAPENTIN300 MG PO (08:59)
[2023-08-14] MEDS ORDERED: OXYCODONE HCL5 MG PO (08:59)
[2023-08-14] MEDS ORDERED: SENNA LAX8.6 MG PO (09:00)
[2023-08-14] MEDS ORDERED: KETOROLAC TROMETHAMINE 30 MG/ML VIAL IV PRN (09:00)
[2023-08-14] MEDS ORDERED: OXYCODONE HCL 5 MG TAB PO PRN (09:00)
--- NOTE | 2023-08-14 09:13 | NUR ---
08/14/23 0913 Jewell Interiano PATIENT ARRIVES IN PACU AWAKE AND TALKING WITH RN AND TRAILER MECHANIC. PATIENT DENIES PAIN. HE IS ABLE TO MOVE HIS LEFT FOOT. NO MOVEMENT IS PRESENT IN HIS RIGHT FOOT. PATIENT REPORTS A DRY, SCRATCHY THROAT AND ASKS FOR ICE CHIPS. HOB IS ELEVATED AND ICE CHIPS ARE GIVEN.
--- NOTE | 2023-08-14 09:45 | NUR ---
PT ARRIVES TO DS UNIT FROM PACU VIA STRETCHER. PT IS A&O AND ASKING QUESTIONS APPROPRIATELY. PT REPORTS PAIN 1/10 AND TOLERABLE AT THIS TIME, STATES NO NEED FOR PRN PAIN MED. DRESSING C/D/I, NO SIGNS OF BLEEDING AT THIS TIME. SPINAL AT MID THIGH AT THIS TIME. PT ABLE TO WIGGLE FEET SLIGHTLY AND REPORTS N/T. REPORT RECEIVED FROM GODFREY RN, AT BEDSIDE. CRYO CUFF, DEE HOSE, HEEL PROTECTORS, AND FOOT PUMPS IN PLACE AT THIS TIME. JELLO AND ICE WATER PROVIDED W/CRACKERS. PT STATES NO FURTHER NEEDS OR QUESTIONS AT THIS TIME. CALL LIGHT WITHIN REACH.
[2023-08-14 09:51] VITALS: BP 117/59
--- NOTE | 2023-08-14 10:47 | NUR ---
IN PT ROOM FOR VS AND ASSESSMENT. PT REPORTS NO CHANGE IN PAIN, REMAINS 1/10 AND TOLERABLE AT THIS TIME. NO CHANGE FROM PREVIOUS SURGICAL SITE ASSESSMENT. SPINAL IS RIGHT ABOVE KNEE LEVEL AT THIS TIME, PT REPORT NUMBNESS ONLY IN LFT FT AND ABLE TO WIGGLE TOES AT THIS TIME. CRYO CUFF, DEE HOSE, HEEL PROTECTORS, AND FOOT PUMPS IN PLACE. PT TOLERATING ICE WATER AND JELLO W/OUT DIFFICULTY. TXA INFUSION STARTED (SEE EMAR). REMAINS AT BEDSIDE. CALL LIGHT WITHIN REACH, NO FURTHER NEEDS AT THIS TIME.
[2023-08-14 10:48] VITALS: BP 130/60
[2023-08-14] MEDS ORDERED: TRANEXAMIC ACID 2,000 MG in SODIUM CHLORIDE 0.9% 100 ML IV ONE (11:00)
--- NOTE | 2023-08-14 11:40 | NUR ---
IN PT ROOM FOR ASSESSMENT AND VS. PT REPORTS PAIN 3/10 AND TOLERABLE AT THIS TIME. PT REMAINS ON RA W/O2 >90%. RESPIRATIONS EVEN AND UNLABORED, NO SIGNS OF DISTRESS. PT CONSUMED 100% OF LUNCH AND REPORTS NO NEW NAUSEA. NO ACUTE CHANGES FROM PREVIOUS SURGICAL SITE ASSESSMENT. CALL LIGHT WITHIN REACH, PT STATES NO FURTHER NEEDS OR QUESTIONS AT THIS TIME.
[2023-08-14 11:44] VITALS: BP 136/68
[2023-08-14] MEDS ORDERED: XARELTO10 MG PO (12:11)
--- NOTE | 2023-08-14 12:32 | NUR ---
ALEX W/PHYSICAL THERAPY IN PT ROOM FOR ASSESSMENT. ALEX STATES PT IS UNABLE TO HAVE MUSCLE CONTROL SO UNABLE TO PERFORM PHYSICAL THERAPY AT THIS TIME. PT UPDATED ON PLAN OF CARE AND AGREEABLE AT THIS TIME. PT STATES NO FURTHER QUESTIONS OR NEEDS, CALL LIGHT WITHIN REACH. AT BEDSIDE.
--- NOTE | 2023-08-14 12:48 | NUR ---
IN PT ROOM FOR ASSESSMENT AND VS. NO ACUTE CHANGES FROM PREVIOUS ASSESSMENT. SPINAL IS MAJORITY RESOLVED BESIDES NUMBNESS IN GLUTEAL REGION. PT CMS INTACT IN BLE, MINOR TINGLING IN RT FOOT. PT REPORTS NO CHANGES IN PAIN, REMAINS AT 3/10 AT THIS TIME AND TOLERABLE. CALL LIGHT WITHIN REACH, NO FURTHER NEEDS AT THIS TIME. REMAINS AT BEDSIDE.
[2023-08-14 12:50] VITALS: BP 138/73
--- NOTE | 2023-08-14 13:50 | NUR ---
ANSWERED PT CALL LIGHT, PT REPORTS URINE VOID IN BED. THIS RN AND CHARI RN ASSIST W/COMPLETE BED/GOWN CHANGE AND PT ABLE TO PERFORM ISHMAEL CARE ON OWN. PT LOG ROLLS FROM SIDE TO SIDE W/OUT DIFFICULTY. UNMEASUREABLE VOID AND PT VOIDS 50 ML IN URINAL, BUT UNABLE TO FEEL SENSATION. CALL LIGHT WITHIN REACH, HEEL PROTECTORS AND CRYO CUFF IN PLACE. WARM BLANKETS PROVIDED. IN ROOM AT THIS TIME, PT REPORTS NO FURTHER NEEDS.
--- NOTE | 2023-08-14 14:15 | NUR ---
ALEX W/PHYSICAL THERAPY IN ROOM FOR ASSESSMENT, REPORTS PT REMAINS UNABLE TO WORK WITH PHYSICAL THERAPY AT THIS TIME D/T SPINAL NOT RESOLVED.
[2023-08-14] MEDS ORDERED: GABAPENTIN 300 MG CAP PO SCH (15:00)
--- NOTE | 2023-08-14 15:01 | NUR ---
IN PT ROOM D/T ANSWERED CALL LIGHT. PT REPORTS PAIN AT 5/10 AND REQUESTS PRN PAIN MED AT THIS TIME. PRN OXY AND SCHEDULED GABAPENTIN GIVEN AT THIS TIME (SEE EMAR). PT ABLE TO PERFORM ALL FLEXION EXERCISES BUT STATES NUMBNESS CONTINUES TO REMAIN IN ISHMAEL AREA. 100 ML OF URINE IN URINAL, BUT PT STATES UNABLE TO CONTROL VOID OR FEEL SENSATION TO INITIATE STREAM. CALL LIGHT WITHIN REACH, PT REPORTS NO FURTHER NEEDS AT THIS TIME.
--- NOTE | 2023-08-14 15:20 | NUR ---
ALEX W/PHYSICAL THERAPY ARRIVES AND WORKING W/PT AT THIS TIME.
--- NOTE | 2023-08-14 15:50 | NUR ---
ASSESSMENT PERFORMED, NO ACUTE CHANGES FROM PREVIOUS ASSESSMENT. 3GM ANCEF GIVEN AT THIS TIME (SEE EMAR). PT REPORTS PAIN HAS IMPROVED TO 3/10 AND TOLERABLE "ACHE" AT THIS TIME. PT ENCOURAGED TO DRINK WATER D/T ONLY REQUIREMENT LEFT TO MEET IS URINE VOID THAT IS NOT INCONTINENT. PT STATES VERBAL UNDERSTANDING AT THIS TIME. CALL LIGHT WITHIN REACH, AT BEDSIDE, PT REPORTS NO FURTHER NEEDS AT THIS TIME.
--- NOTE | 2023-08-14 16:25 | NUR ---
IN PT ROOM TO ANSWER CALL LIGHT. PT URINE VOID 900 ML OF CLEAR/YELLOW URINE AT THIS TIME. PT NOW GETTING DRESSED W/ ASSISTANCE. CALL LIGHT WITHIN REACH. JOAN FERRER CALLED AND UPDATED ON PT PASSING OF REQUIREMENTS, VERBAL ORDER FOR DISCHARGE RECEIVED AT THIS TIME.
--- NOTE | 2023-08-14 16:25 | NUR ---
VS TAKEN. DISCHARGE EDUCATION PROVIDED AT THIS TIME, PT AND PT STATE VERBAL UNDERSTANDING AND NO FURTHER QUESTIONS. PT OFF OF UNIT VIA WC TO PASSENGER SIDE OF 'S VEHICLE. PT REPORTS NO FURTHER NEEDS AT THIS TIME. ALL BELONGINGS IN PT POSSESSION. FULL CRYO CUFF AND INCENTIVE SPIROMETER PROVIDED, EDUCATION UNDERSTOOD ABOUT PRODUCT USE.
[2023-08-14 16:32] VITALS: BP 131/78
[2023-08-14] MEDS ORDERED: SENNOSIDES 1 TAB PO SCH (21:00)
[2023-08-15] MEDS ORDERED: DICLOFENAC SOD 75 MG TABEC PO SCH (08:00)
[2023-08-15] MEDS ORDERED: cefuroxime axetiL 250 MG TAB PO SCH (09:00)
--- NOTE | 2023-08-15 10:36 | OR ---
[facility] [address] [place], [place] [address] Signed DATE OF OPERATION: 08/14/2023 SURGEON: Deedee Oseguera MD PREOPERATIVE DIAGNOSIS: Avascular necrosis, left hip. POSTOPERATIVE DIAGNOSIS: Avascular necrosis, left hip. PROCEDURE PERFORMED: Left total hip arthroplasty. SOCIAL INSURANCE ADMINISTRATOR: Barbara Salazar PA-C. Barbara was present and critical for all portions of procedure. ANESTHESIA: Spinal. BLOOD LOSS: 200 mL. IMPLANTS: Freddie Secur-Fit size 9, 56 cup with two screws and +2.5 mm head. BRIEF HISTORY: Jorge is a 48-year-old gentleman with fairly sudden recent onset of significant pain in his hip. Radiographs and MRI were consistent with avascular necrosis. Risks and benefits of operative treatment were discussed with him. He elected to proceed. Once consent was obtained, he was taken to the operating room. After adequate anesthesia, he was placed on the operating room bed on the right lateral decubitus position with an axillary roll. All downside pressure points were well padded. The left hip and lower extremity were prepped and draped in a standard sterile fashion. The hip was approached through standard anterolateral incision, carried through skin subcutaneous tissue. This was centered over the trochanter, taken through the IT band. All bleeders were cauterized as we went and the vastus medialis was split from the tip of the trochanter superiorly. The vastus lateralis was then elevated subperiosteally all the way around to the level of the lesser trochanter. The hip was dislocated and the femoral neck cut was made one fingerbreadth above the lesser trochanter. The periacetabular soft tissue Electronically Signed By: DEEDEE OSEGUERA MD 08/15/23 1036 PATIENT NAME: SHAZIA ESCAMILLA OPERATIVE REPORT DATE OF : 73 REPORT #: [id number] PHYSICIAN: DEEDEE OSEGUERA MD PCP: YAMILE ELIZABETH REPORT IS CONFIDENTIAL AND NOT TO BE RELEASED WITHOUT AUTHORIZATION [facility] [address] [place], [place] [address] Signed was removed. The acetabulum was then reamed starting with a 52 and going to a 56. The bone was in good condition. Because of the avascular necrosis, I did elect to put two screws in. The cup was impacted in 40 degrees of abduction and 20 of anteversion. Two screws were placed in the posterior superior quadrant. The liner was then impacted. The entire construct was quite stable. Attention was turned to the proximal femur, which was opened using nereydaie cutter followed by the Renetta awl and lateralized the reamer. The proximal femur was then sequentially broached up to a 9 and was left in position with +0 head and the hip was reduced. It was reduced a little too easily and was a little bit sloppy. We elected then to switch to 2.5 head. Hip was dislocated and the trials removed. The final stem was impacted until it was well-seated and very stable. A +2.5 head was impacted onto and the hip was reduced. Leg lengths were found to be equal with good range of motion. No impingement. The wound was copiously irrigated with one bottle of Surgiphor followed by normal saline. The periarticular soft tissues were injected with 100 mL of ropivacaine and Toradol mixture. The capsule was then closed using #2 FiberWires. The vastus and IT band layers were closed independently using #2 FiberWire. Skin; dermis was closed with 0 Stratafix, the skin with 3-0 Stratafix. Wound was sealed with LiquiBand and Steri-Strips. The wound was dressed with an Acticoat-7 dressing. He was awakened and taken to recovery room in satisfactory condition. All sponge, needle, and instrument counts correct. Deedee Oseguera MD BA/MODL /[id number] Copies: ~ Electronically Signed By: DEEDEE OSEGUERA MD 08/15/23 1036 PATIENT NAME: SHAZIA ESCAMILLA OPERATIVE REPORT DATE OF : 73 REPORT #: [id number] PHYSICIAN: DEEDEE OSEGUERA MD PCP: YAMILE ELIZABETH REPORT IS CONFIDENTIAL AND NOT TO BE RELEASED WITHOUT AUTHORIZATION
== END 2023-08-14 16:35 | disposition home or self-care (01) ==
LOC: DS 05:50
PROVIDERS: Nurse Anesthetist, Certified Registered; ATTEND Specialist
PROC: 0SRB0JZ Replacement of Left Hip Joint with Synthetic Substitute, Open Approach (ICD-10-PCS; principal; 2023-08-14 07:00)
DX: M87.88 Other osteonecrosis, other site (principal); M16.12 Unilateral primary osteoarthritis, left hip; J45.909 Unspecified asthma, uncomplicated; K21.9 Gastro-esophageal reflux disease without esophagitis; Z79.82 Long term (current) use of aspirin; Z79.899 Other long term (current) drug therapy
CPT/HCPCS: 01214; 36415; 72170; 80053; 85025; 97161; A9270; C1713; C1776; J0131; J0690; J1100; J1885; J2001; J2250; J2704; J3010; J3490; J7121

== ENCOUNTER 2024-05-12 20:36 | Emergency (ER) | payer OTHER ==
[~2024-05-12] VITALS: Ht 190.5 cm; Wt 138.9 kg
[~2024-05-12 20:36] MED LIST changes: +CEFUROXIME250 MG PO; +GABAPENTIN300 MG PO; -LACTATED RINGER'S 1,000 ML IV SCH; +SENNA LAX8.6 MG PO; +XARELTO10 MG PO
[2024-05-12] MEDS ORDERED: methylPREDNISolone SOD SUCC 125 MG/2 ML VIAL IV ONE (21:00)
[2024-05-12] MEDS ORDERED: LACTATED RINGER'S 1,000 ML IV ONE (21:00)
[2024-05-12] MEDS ORDERED: FAMOTIDINE 20 MG/ 2 ML VIAL IV ONE (21:00)
[2024-05-12] MEDS ORDERED: diphenhydrAMINE HCL 50 MG/ML VIAL IV ONE (21:00)
[2024-05-12 21:03] LABS: BASOPHILS 0.4 % (0-2); EOSINOPHILS 2.7 % (0-6); HEMATOCRIT 46.7 % (35.0-50.0); HEMOGLOBIN 16.5 g/dL (12.0-18.0); LYMPHOCYTES 32.3 % (24-44); MCH 34.6 (27-36); MCHC 35.5 g/dl (30-36); MCV 97.7 fl (81-99); MONOCYTES 7.8 % (0-12); NEUTROPHILS 56.8 % (39-80); PLATELET COUNT 200 K/uL (140-440); RBC 4.78 M/ul (4.3-5.7); RDW 13.2 (10.5-15.0)
[2024-05-12 21:19] LABS: ALBUMIN 4.5 g/dL (3.4-5.0); ALBUMIN/GLOBULIN RATIO 1.55 (1.1-2.4); ANION GAP 13.6 (7-21); BILIRUBIN, TOTAL 0.6 mg/dL (0.2-1.0); BUN/CREATININE RATIO 14.91 (6.0-28.6); CREATININE, SERUM 1.14 mg/dL (0.70-1.30); POTASSIUM 3.6 mmol/L (3.5-5.1); PROTEIN, TOTAL 7.4 g/dL (6.4-8.2)
[2024-05-12 21:28] LABS: CORONAVIRUS COVID-19 AG NEGATIVE (NEGATIVE); INFLUENZA A AG NEGATIVE (NEGATIVE); INFLUENZA B AG NEGATIVE (NEGATIVE)
[2024-05-12] MEDS ORDERED: METHYLPREDNISOLO4 M1 PO (22:10)
[2024-05-12 22:20] VITALS: BP 163/98
== END 2024-05-12 22:20 | disposition home or self-care (01) ==
LOC: ED 20:36
PROVIDERS: Internal Medicine
DX: J02.8 Acute pharyngitis due to other specified organisms (principal); B97.89 Other viral agents as the cause of diseases classified elsewhere; I10 Essential (primary) hypertension; J45.909 Unspecified asthma, uncomplicated; Z91.018 Allergy to other foods; Z79.899 Other long term (current) drug therapy
CPT/HCPCS: 36415; 80053; 85025; 87651; 96374; 96375; 99283-25; J1200; J2919; J7121